=== PATIENT | male | born 1975 | race African-American/Black ===

== ENCOUNTER 2019-04-04 00:25 | Emergency (ER) | payer OTHER ==
[2019-04-04 01:37] VITALS: BMI 25.8
[2019-04-04] MEDS ORDERED: FOLIC ACID INJECTION - 1 MG, THIAMINE HCL 100 MG, MULTIVIT INJECTION ADULT 10 ML in SOD... IVPB ONE (05:10)
--- NOTE | 2019-04-04 05:10 | PDOC ---
*Physical Exam - Vital Signs Last Vital Signs Temp Pulse Resp BP Pulse Ox 98.0 F 88 17 131/71 100 04/04/19 00:42 04/04/19 00:42 04/04/19 00:42 04/04/19 00:42 04/04/19 00:42 ED Treatment Course - LABORATORY CBC & Chemistry Diagram: 04/04/19 05:50 04/04/19 05:50 Medical Decision Making - Medical Decision Making 04/04/19 05:09 Patient seen by the advanced practice provider under my direct supervision. Ancillary testing reviewed as necessary. I agree with plan as outlined by the advanced practice provider. 04/04/19 05:09 Discharge - Discharge Information Problems reviewed: Yes Clinical Impression/Diagnosis: Alcohol withdrawal Qualifiers: Complication of substance-induced condition: uncomplicated Qualified Code(s): F10.230 - Alcohol dependence with withdrawal, uncomplicated Condition: Stable Disposition: TRANSFER ACUTE CARE/OTHER HOSP - Follow up/Referral - Patient Discharge Instructions Patient Printed Discharge Instructions: DI for Drug or Alcohol Withdrawal - Post Discharge Activity
[2019-04-04] MEDS ORDERED: ONDANSETRON 4 MG/2 ML VIAL IVPUSH ONE (05:11)
--- NOTE | 2019-04-04 05:17 | PDOC ---
History of Present Illness - General Chief Complaint: Nausea/Vomiting Stated Complaint: DETOX ETOH Time Seen by Provider: 04/04/19 05:03 History Source: Patient Exam Limitations: No Limitations - History of Present Illness Initial Comments: 04/04/19 05:11 HISTORY OF PRESENT ILLNESS: This a 44-year-old male past medical history of alcohol abuse (1 pint of vodka daily with 3-4 beers additionally) who presents emergency department for evaluation of nausea and vomiting while at detox facility. Patient reports he was in a hospital in the [place] all day yesterday and was discharged from the ER to [facility] facility. Upon arrival at the [facility] detox facility he began to feel nauseous and had one episode of nonbilious nonbloody vomiting. Patient reports his last drink was approximately 24 hours ago. Patient reports he feels mildly anxious. No recent travel or sick contacts. PAST MEDICAL HISTORY: Denies past medical history SURGICAL HISTORY: Denies ALLERGIES: No known drug allergies REVIEW OF SYSTEMS General/Constitutional: Denies fever or chills. Denies weakness, weight change. HEENT: Denies change in vision. Denies ear pain or discharge. Denies sore throat. Cardiovascular: Denies chest pain or shortness of breath. Respiratory: Denies cough, wheezing, or hemoptysis. Gastrointestinal: See HPI Genitourinary: Denies dysuria, frequency, or change in urination. Musculoskeletal: Denies joint or muscle swelling or pain. Denies neck or back pain. Skin and breasts: Denies rash or easy bruising. Neurologic: Denies headache, vertigo, loss of consciousness, or loss of sensation. Psychiatric: Denies depression or anxiety. Endocrine: Denies increased thirst. Denies abnormal weight change. Hematologic/Lymphatic: Denies anemia, easy bleeding, or history of blood clots. Allergic/Immunologic: Denies hives or skin allergy. Denies latex allergy. PHYSICAL EXAM General Appearance: Appears anxious. No apparent distress, no intoxication. HEENT: EOMI, PERRLA, normal ENT inspection, normal voice, TMs normal, pharynx normal. No conjunctival pallor. No photophobia, scleral icterus. Neck: Supple. Trachea midline. No tenderness, rigidity, carotid bruit, stridor , lymphadenopathy, or thyromegaly. Respiratory/Chest: Lungs CTAB. No shortness of breath, chest tenderness, respiratory distress, accessory muscle use. No crackles, rales, rhonchi, stridor , wheezing, dullness Cardiovascular: RRR. S1, S2. No JVD, murmur, bradycardia, tachycardia. Vascular Pulses: Dorsalis-Pedis (R): 2+, Dorsalis-Pedis (L): 2+ Gastrointestinal/Abdominal: Normal bowel sounds. Abdomen soft, non-distended. No tenderness or rebound tenderness. No organomegaly, pulsatile mass, guarding, hernia, hepatomegaly, splenomegaly. Lymphatic: No adenopathy, tenderness. Musculoskeletal/Extremities: Normal inspection. FROM of all extremities, normal capillary refill. Pelvis Stable. No CVA tenderness. No tenderness to extremities, pedal edema, swelling, erythema or deformity. Integumentary: Appropriate color, dry, warm. No cyanosis, erythema, jaundice or rash Neurologic: auto claims adjuster II-XII intact. Fully oriented, alert. Appropriate mood/affect. Motor strength 5/5. No appreciable EOM palsy, facial droop or sensory deficit. Tremors present with arms extended. CIWA-Ar 9. Past History - Past Medical History Allergies/Adverse Reactions: Allergies Allergy/AdvReac Type Severity Reaction Status Date / Time No Known Allergies Allergy Verified 04/04/19 10:31 Home Medications: Ambulatory Orders Betamethasone Dipropionate [Diprosone] 1 applic TP BID 04/03/19 Asthma: Yes COPD: No - Psycho Social/Smoking Cessation Hx Smoking History: Never smoked Have you smoked in the past 12 months: No Information on smoking cessation initiated: No Hx Alcohol Use: Yes Drug/Substance Use Hx: No *Physical Exam - Vital Signs Last Vital Signs Temp Pulse Resp BP Pulse Ox 98.0 F 88 17 131/71 100 04/04/19 00:42 04/04/19 00:42 04/04/19 00:42 04/04/19 00:42 04/04/19 00:42 ED Treatment Course - LABORATORY CBC & Chemistry Diagram: 04/04/19 05:50 04/04/19 05:50 Medical Decision Making - Medical Decision Making 04/04/19 05:16 A/P: 44-year-old male with acute alcohol withdrawal Last drink 24 hours ago CIWA score 9. Tremors noted with arms extended Reports mild anxiety No sweating present CBC, chemistry, alcohol Urine toxicology Banana bag Ativan 2 mg IV push Zofran 4 mg IV push Reassess Discharge - Discharge Information Problems reviewed: Yes Clinical Impression/Diagnosis: Alcohol withdrawal Qualifiers: Complication of substance-induced condition: uncomplicated Qualified Code(s): F10.230 - Alcohol dependence with withdrawal, uncomplicated Condition: Stable Disposition: TRANSFER ACUTE CARE/OTHER HOSP - Follow up/Referral - Patient Discharge Instructions Patient Printed Discharge Instructions: DI for Drug or Alcohol Withdrawal - Post Discharge Activity
[2019-04-04] MEDS ORDERED: LORazepam 2 MG/ML SDV VIAL ONE (05:58)
[2019-04-04] MEDS ORDERED: ONDANSETRON 4 MG/2 ML VIAL ONE (06:00)
[2019-04-04] MEDS ORDERED: chlordiazePOXIDE HCL 25 MG CAPSULE PO ONE (06:04)
[2019-04-04 06:06] LABS: BASO % 2.6 % (0-2.0); EOS % 13.3 % (0-4.5); HEMATOCRIT 37.8 % (35.4-49); HEMOGLOBIN 12.6 GM/dL (11.7-16.9); LYMPH % 22.7 % (8-40); MCH 29.8 pg (25.7-33.7); MCHC 33.4 g/dl (32.0-35.9); MEAN CELL VOLUME 89.4 fl (80-96); MEAN PLT VOLUME 8.1 fl (7.5-11.1); MONO % 9.9 % (3.8-10.2); NEUT % 51.5 % (42.8-82.8); PLATELET COUNT 126 K/MM3 (134-434); RBC 4.23 M/mm3 (4.00-5.60); RDW 16.2 % (11.9-15.9); WHITE BLOOD COUNT 3.7 K/mm3 (4.0-10.0)
[2019-04-04] MEDS ORDERED: chlordiazePOXIDE HCL 25 MG CAPSULE ONE (06:11)
[2019-04-04 06:33] LABS: BILIRUBIN,TOTAL 2.2 mg/dL (0.2-1); BLOOD UREA NITROGEN 5.4 mg/dL (7-18); CALCIUM 9.6 mg/dL (8.5-10.1); CREATININE 0.7 mg/dL (0.55-1.3); TOT PROT 8.2 g/dl (6.4-8.2)
[2019-04-04 08:21] LABS: PH,URINE 6.5 (5.0-8.0); URINE APPEARANCE CLEAR; URINE BILIRUBIN NEGATIVE (NEGATIVE); URINE COLOR YELLOW; URINE GLUCOSE (UA) NEGATIVE (NEGATIVE); URINE KETONE 2+ (NEGATIVE); URINE LEUK ESTERASE NEGATIVE (NEGATIVE); URINE NITRITE NEGATIVE (NEGATIVE); URINE PROTEIN NEGATIVE (NEGATIVE)
--- NOTE | 2019-04-04 08:41 | PDOC ---
*Physical Exam - Vital Signs Last Vital Signs Temp Pulse Resp BP Pulse Ox 98.3 F 96 H 18 134/76 100 04/04/19 07:15 04/04/19 07:15 04/04/19 07:15 04/04/19 07:15 04/04/19 07:15 - Physical Exam 04/04/19 08:37 Sign-out received from outgoing ER provider Willard. Pt interviewed and examined. Ancillary studies reviewed. Pending [facility] care transfer. Called intake at facility, patient accepted by Dr. Morales for transfer back to . ED Treatment Course - LABORATORY CBC & Chemistry Diagram: 04/04/19 05:50 04/04/19 05:50 - ADDITIONAL ORDERS Additional order review: Laboratory Results 04/04/19 04/04/19 04/04/19 07:50 05:50 05:50 Sodium 129 L Potassium 4.0 Chloride 92 L Carbon Dioxide 24 Anion Gap 14 BUN 5.4 L Creatinine 0.7 Est GFR (CKD-EPI)AfAm 133.02 Est GFR (CKD-EPI)NonAf 114.77 Random Glucose 68 L Calcium 9.6 Total Bilirubin 2.2 H AST 140 H ALT 71 H Alkaline Phosphatase 102 Total Protein 8.2 Albumin 4.0 Urine Color Yellow Urine Appearance Clear Urine pH 6.5 Ur Specific [place] 1.006 L Urine Protein Negative Urine Glucose (UA) Negative Urine Ketones 2+ H Urine Blood Negative Urine Nitrite Negative Urine Bilirubin Negative Urine Urobilinogen 2.0 Ur Leukocyte Esterase Negative Alcohol, Quantitative < 3 04/04/19 05:50 RBC 4.23 MCV 89.4 MCHC 33.4 RDW 16.2 H MPV 8.1 Neutrophils % 51.5 Lymphocytes % 22.7 Monocytes % 9.9 Eosinophils % 13.3 H Basophils % 2.6 H - Medications Given in the ED: ED Medications Discontinued Medications Generic Name Dose Route Start Last Admin Trade Name Freq PRN Reason Stop Dose Admin Chlordiazepoxide HCl 50 mg 04/04/19 06:04 04/04/19 06:15 Librium - PO 04/04/19 06:05 50 mg ONCE ONE Administration Lorazepam 2 mg 04/04/19 05:10 04/04/19 06:09 Ativan Injection - IVPUSH 04/04/19 05:11 Not Given ONCE ONE Lorazepam 1 mg 04/04/19 05:19 04/04/19 06:09 Ativan Injection - IVPUSH 04/04/19 05:20 Not Given ONCE ONE Ondansetron HCl 4 mg 04/04/19 05:11 04/04/19 06:09 Zofran Injection IVPUSH 04/04/19 05:12 4 mg ONCE ONE Administration Discharge - Discharge Information Problems reviewed: Yes Clinical Impression/Diagnosis: Alcohol withdrawal Qualifiers: Complication of substance-induced condition: uncomplicated Qualified Code(s): F10.230 - Alcohol dependence with withdrawal, uncomplicated Condition: Stable Disposition: TRANSFER ACUTE CARE/OTHER HOSP - Admission No - Follow up/Referral - Patient Discharge Instructions Patient Printed Discharge Instructions: DI for Drug or Alcohol Withdrawal - Post Discharge Activity
[2019-04-04 08:43] LABS: COCAINE, UR NEGATIVE ng/ml (CUTOFF=300); METHADONE, UR NEGATIVE ng/ml (CUTOFF=300); OPIATES, URI NEGATIVE ng/ml (CUTOFF=300); PHENCYCLIDINE,URINE NEGATIVE ng/ml (CUTOFF=25); URINE AMPHETAMINES NEGATIVE ng/ml (CUTOFF=500); URINE BARBITURATES NEGATIVE ng/ml (CUTOFF=200)
[2019-04-04 08:45] LABS: URINE BENZODIAZEPINES POSITIVE ng/ml (CUTOFF=200)
[2019-04-04 09:25] VITALS: BP 133/88; PULSE 99; TEMP 98
== END 2019-04-04 09:15 | disposition short-term general hospital (02) ==
LOC: JER 00:25
PROC: 3E033GC Introduction of Other Therapeutic Substance into Peripheral Vein, Percutaneous Approach (ICD-10-PCS; principal; 2019-04-04)
PROC: 3E0337Z Introduction of Electrolytic and Water Balance Substance into Peripheral Vein, Percutaneous Approach (ICD-10-PCS; 2019-04-04)
DX: F10.230 Alcohol dependence with withdrawal, uncomplicated (principal)
CPT/HCPCS: 36415; 80053; 80307; 81003; 85025; 87086; 96361; 96365; 99283-25; J7030

== ENCOUNTER 2019-04-04 09:56 | Inpatient (IN) | payer OTHER ==
[2019-04-04 10:35] VITALS: BMI 23.3
--- NOTE | 2019-04-04 11:50 | HP ---
CIWA Score Nausea/Vomitin-No Nausea/No Vomiting Muscle Tremors: 3 Anxiety: 1-Mildly Anxious Agitation: 0-Normal Activity Paroxysmal Sweats: 1-Minimal Palms Moist Orientation: 0-Oriented Tacttile Disturbances: 2-Mild Itch/Numbness/Burn Auditory Disturbances: 0-None Visual Disturbances: 0-None Headache: 2-Mild (CIWA lower due to some librium already given by ED) CIWA-Ar Total Score: 9 - Admission Criteria OASAS Guidelines: Admission for Medically Managed Detox: Requires at least one of the followin. CIWA greater than 12 2. Seizures within the past 24 hours 3. Delirium tremens within the past 24 hours 4. Hallucinations within the past 24 hours 5. Acute intervention needed for co occurring medical disorder 6. Acute intervention needed for co occurring psychiatric disorder 7. Severe withdrawal that cannot be handled at a lower level of care (continued vomiting, continued diarrhea, abnormal vital signs) requiring intravenous medication and/or fluids 8. Admitting History and Physical - Admission Chief Complaint: " I almost passed out yesterday and went to the hospital." History of Present Illness: 44 year old male who was intoxicated upon presentation [facility] last night and was sent to [facility] ER for stabilization. He was given IVFluids and also Librium one dose while there. His vitals were very unstable last night and now that he was stabilized he will be admitted for detox. He is drinking 1 pint vodka daily and 3-4 beers, last drank yesterday morning prior to coming to [facility]. He's had 3 blackouts in the past. Denies withdrawal seizures. PMH: Asthma Psurg: None Psych: None Meds: As per nursing. He lives with his mother. 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 History Source: Patient Limitations to Obtaining History: No Limitations - Past Surgical History Past Surgical History: Yes: None - Advance Directives Advance Directives: No: Living Will, Health Care Proxy, DNR - Smoking History Smoking history: Never smoked Have you smoked in the past 12 months: No - Alcohol/Substance Use Hx Alcohol Use: Yes - Social History Usual Living Arrangement: Yes: With Parent Do you think of yourself as: Straight/Heterosexual ADL: Independent Occupation: unknown History of Recent Travel: No Admission ROS [facility] Allergies/Adverse Reactions: Allergies Allergy/AdvReac Type Severity Reaction Status Date / Time No Known Allergies Allergy Verified 04/04/19 10:31 Exam Limitations: No Limitations - Ebola screening Have you traveled outside of the country in the last 21 days: No (N) Have you had contact with anyone from an Ebola affected area: No Do you have a fever: No - Review of Systems Constitutional: Diaphoresis EENT: reports: No Symptoms Reported Respiratory: reports: No Symptoms reported Cardiac: reports: No Symptoms Reported GI: reports: Nausea : reports: No Symptoms Reported Musculoskeletal: reports: No Symptoms Reported Integumentary: reports: No Symptoms Reported Neuro: reports: No Symptoms reported Endocrine: reports: No Symptoms Reported Hematology: reports: No Symptoms Reported Psychiatric: reports: Judgement Intact, Mood/Affect Appropiate, Orientated x3 Other Systems: Reviewed and Negative Patient History - Patient Medical History Hx Asthma: Yes Hx Chronic Obstructive Pulmonary Disease (COPD): No - Patient Surgical History Past Surgical History: No - PPD History Previous Implant?: Yes Documented Results: Negative w/proof Implanted On Prior [facility] Admission?: Yes Date: 10/24/18 ([facility]) Results: negative PPD to be Administered?: Yes - Smoking Cessation Smoking history: Never smoked Have you smoked in the past 12 months: No Hx Chewing Tobacco Use: No Initiated information on smoking cessation: No - Substances abused Alcohol Substance route: Oral Frequency: Daily Amount used: 1 PINT VODKA, 4 BEERS DAILY Age of first use: 17 Date of last use: 04/03/19 Admission Physical Exam BHS - Vital Signs Vital Signs: Vital Signs - 24 hr 04/04/19 10:31 Temperature 97.5 F L Pulse Rate 92 H Respiratory 18 Rate Blood Pressure 109/76 - Physical General Appearance: Yes: Mild Distress, Irritable, Anxious HEENTM: Yes: EOMI, Hearing grossly Normal, Normal ENT Inspection, Normocephalic , Normal Voice, REBECA, Pharynx Normal, Tm's normal Respiratory: Yes: Chest Non-Tender, Lungs Clear, Normal Breath Sounds, No Respiratory Distress, No Accessory Muscle Use Neck: Yes: No masses,lesions,Nodules, Supple, Trachea in good position Cardiology: Yes: Regular Rhythm, Regular Rate, S1, S2 Abdominal: Yes: Normal Bowel Sounds, Non Tender, Flat Genitourinary: Yes: Within Normal Limits Back: Yes: Normal Inspection Musculoskeletal: Yes: full range of Motion, Gait Steady, Pelvis Stable Extremities: Yes: Normal Capillary Refill, Normal Inspection, Normal Range of Motion, Non-Tender Neurological: Yes: corporate strategist II-XII NML intact, Fully Oriented, Alert, Motor Strength 5/5, Normal Mood/Affect, Normal Response Integumentary: Yes: Normal Color, Warm, Other (multiple areas or papules scars, hyperpigmentation) Lymphatic: Yes: Within Normal Limits - Diagnostic (1) Alcohol dependence with intoxication Current Visit: Yes Status: Acute (2) Asthma Current Visit: Yes Status: Acute Screened but not Admitted - Documentation of Visit Screened but not Admitted: No Breathalyzer - Breathalyzer Breathalyzer: 0 Urine Drug Screen - Test Device Lot number: [id number] Expiration date: 10/18/20 - Control Is test valid?: Yes - Results Drug screen NEGATIVE: No Urine drug screen results: BZO-Benzodiazepines Inpatient Rehab Admission - Rehab Decision to Admit Inpatient rehab admission?: No
[2019-04-04] MEDS ORDERED: chlordiazePOXIDE HCL 25 MG CAPSULE PO PRN (11:57)
[2019-04-04] MEDS ORDERED: BISMUTH SUBSALICYLATE 262 MG/15 ML BTL PO PRN (11:57)
[2019-04-04] MEDS ORDERED: MENTHOL/PHENOL 1 EACH UD MM PRN (11:57)
[2019-04-04] MEDS ORDERED: hydrOXYzine PAMOATE 25 MG CAPSULE (FP) PO PRN (11:57)
[2019-04-04] MEDS ORDERED: METHOCARBAMOL 500 MG TABLET PO PRN (11:57)
[2019-04-04] MEDS ORDERED: MAG HYDROX/AL HYDROX/SIMETH 30 ML UNIT-DOSE CUP PO PRN (11:57)
[2019-04-04] MEDS ORDERED: MAGNESIUM HYDROX 2400MG/30ML ORAL SUSPENSION 30 ML CUP PO PRN (11:57)
[2019-04-04] MEDS ORDERED: ACETAMINOPHEN 325 MG TABLET (FP) PO PRN ×2 (11:57)
[2019-04-04] MEDS ORDERED: IBUPROFEN 400 MG TABLET (FP) PO PRN (11:57)
[2019-04-04] MEDS ORDERED: MAGNESIUM CITRATE 300 ML BOTTLE PO PRN (11:57)
[2019-04-04] MEDS: chlordiazePOXIDE HCL 25 MG CAPSULE PO SCH ×3 (13:42→22:13)
[2019-04-04] MEDS: THIAMINE HCL 100 MG TABLET (FP) PO SCH (22:13)
[2019-04-04] MEDS: BETAMETHASONE DIPR 0.05% OINTMENT 15 GM TUBE TP SCH (22:13)
[2019-04-04] MEDS: MELATONIN 5 MG TABLETS PO PRN (22:17)
[2019-04-05] MEDS: chlordiazePOXIDE HCL 25 MG CAPSULE PO SCH ×4 (07:49→22:22)
[2019-04-05] MEDS: PRENATAL VITAMINS W/ FOLIC ACID TABLET (FP) PO SCH (10:53)
[2019-04-05] MEDS: BETAMETHASONE DIPR 0.05% OINTMENT 15 GM TUBE TP SCH ×2 (10:54→22:32)
--- NOTE | 2019-04-05 11:10 | PN ---
S CIWA - CIWA Score Nausea/Vomitin-No Nausea/No Vomiting Muscle Tremors: 2 Anxiety: 3 Agitation: 1-Slight > Activity Paroxysmal Sweats: 2 Orientation: 0-Oriented Tacttile Disturbances: 2-Mild Itch/Numbness/Burn Auditory Disturbances: 0-None Visual Disturbances: 0-None Headache: 1-Very Mild CIWA-Ar Total Score: 11 BHS Progress Note (SOAP) Subjective: Patient is a 44 yo male with hx of alcohol dependence on librium detox protocol c/o interrupted sleep, fatigue, chills Objective: 04/05/19 11:09 Vital Signs Temperature 98.2 F 04/05/19 09:56 Pulse Rate 102 H 04/05/19 09:56 Respiratory Rate 18 04/05/19 09:56 Blood Pressure 98/61 04/05/19 09:56 O2 Sat by Pulse Oximetry (%) Laboratory Tests 04/04/19 12:00 RPR Titer Nonreactive labs completed at [facility] 04/04/2019 reviewed elevated LFTS, repeat CMP d/t ETOH abuse Assessment: 04/05/19 11:11 Aox3 no acute distress EENT WNL Full ROM no gait disturbance Plan: increase fluids continue detox continue to monitor
[2019-04-05 14:33] LABS: ALBUMIN 3.6 g/dl (3.4-5.0); BILIRUBIN,TOTAL 0.7 mg/dL (0.2-1); CALCIUM 9.8 mg/dL (8.5-10.1); CREATININE 0.8 mg/dL (0.55-1.3); POTASSIUM 3.8 mmol/L (3.5-5.1); TOT PROT 7.6 g/dl (6.4-8.2)
[2019-04-05] MEDS: THIAMINE HCL 100 MG TABLET (FP) PO SCH (22:22)
[2019-04-05] MEDS: MELATONIN 5 MG TABLETS PO PRN (22:24)
[2019-04-06] MEDS: chlordiazePOXIDE HCL 25 MG CAPSULE PO SCH ×4 (05:50→22:11)
[2019-04-06] MEDS: BETAMETHASONE DIPR 0.05% OINTMENT 15 GM TUBE TP SCH ×2 (10:34→22:13)
[2019-04-06] MEDS: PRENATAL VITAMINS W/ FOLIC ACID TABLET (FP) PO SCH (10:35)
--- NOTE | 2019-04-06 11:07 | PN ---
S CIWA - CIWA Score Nausea/Vomitin-No Nausea/No Vomiting Muscle Tremors: 3 Anxiety: 2 Agitation: 2 Paroxysmal Sweats: 1-Minimal Palms Moist Orientation: 0-Oriented Tacttile Disturbances: 0-None Auditory Disturbances: 0-None Visual Disturbances: 0-None Headache: 0-None Present CIWA-Ar Total Score: 8 BHS Progress Note (SOAP) Subjective: tired sweats body aches Objective: 04/06/19 11:07 Vital Signs Temperature 98.0 F 04/06/19 09:29 Pulse Rate 92 H 04/06/19 09:29 Respiratory Rate 18 04/06/19 09:29 Blood Pressure 126/75 04/06/19 09:29 O2 Sat by Pulse Oximetry (%) Laboratory Tests 04/04/19 04/05/19 12:00 12:35 Sodium 137 Potassium 3.8 Chloride 100 Carbon Dioxide 30 Anion Gap 6 L BUN 5.0 L Creatinine 0.8 Est GFR (CKD-EPI)AfAm 125.92 Est GFR (CKD-EPI)NonAf 108.65 Random Glucose 72 L Calcium 9.8 Total Bilirubin 0.7 AST 53 H ALT 46 Alkaline Phosphatase 79 Total Protein 7.6 Albumin 3.6 RPR Titer Nonreactive aaox3 ambulating no acute distress Assessment: 04/06/19 11:13 withdrawals Plan: continue detox
[2019-04-06] MEDS: THIAMINE HCL 100 MG TABLET (FP) PO SCH (22:11)
[2019-04-06] MEDS: MELATONIN 5 MG TABLETS PO PRN (22:12)
[2019-04-07] MEDS ORDERED: chlordiazePOXIDE HCL 10 MG CAPSULE PO PRN
[2019-04-07] MEDS: chlordiazePOXIDE HCL 10 MG CAPSULE PO SCH ×4 (06:11→22:18)
[2019-04-07] MEDS: BETAMETHASONE DIPR 0.05% OINTMENT 15 GM TUBE TP SCH ×2 (10:23→22:19)
[2019-04-07] MEDS: PRENATAL VITAMINS W/ FOLIC ACID TABLET (FP) PO SCH (10:23)
--- NOTE | 2019-04-07 15:01 | PN ---
S CIWA - CIWA Score Nausea/Vomitin-No Nausea/No Vomiting Muscle Tremors: 3 Anxiety: 3 Agitation: 0-Normal Activity Paroxysmal Sweats: No Perspiration Orientation: 0-Oriented Tacttile Disturbances: 0-None Auditory Disturbances: 0-None Visual Disturbances: 1-Very Mild Sensitivity Headache: 0-None Present CIWA-Ar Total Score: 7 BHS Progress Note (SOAP) Subjective: Interrupted Sleep, Anxious. Objective: PATIENT A & O X 3. IN NO ACUTE DISTRESS. 04/07/19 15:03 Vital Signs Temperature 96.6 F L 04/07/19 09:25 Pulse Rate 83 04/07/19 09:25 Respiratory Rate 16 04/07/19 09:25 Blood Pressure 103/68 04/07/19 09:25 O2 Sat by Pulse Oximetry (%) Laboratory Tests 04/04/19 04/05/19 12:00 12:35 Sodium 137 Potassium 3.8 Chloride 100 Carbon Dioxide 30 Anion Gap 6 L BUN 5.0 L Creatinine 0.8 Est GFR (CKD-EPI)AfAm 125.92 Est GFR (CKD-EPI)NonAf 108.65 Random Glucose 72 L Calcium 9.8 Total Bilirubin 0.7 AST 53 H ALT 46 Alkaline Phosphatase 79 Total Protein 7.6 Albumin 3.6 RPR Titer Nonreactive LABS NOTED. Assessment: 04/07/19 15:03 WITHDRAWAL SYMPTOMS. LEUKOPENIA. THROMBOCYTOPENIA. ELEVATED AST LEVEL. 04/07/19 15:06 Plan: CONTINUE DETOX.
[2019-04-07] MEDS: THIAMINE HCL 100 MG TABLET (FP) PO SCH (22:18)
[2019-04-07] MEDS: MELATONIN 5 MG TABLETS PO PRN (22:20)
[2019-04-08] MEDS: chlordiazePOXIDE HCL 10 MG CAPSULE PO SCH ×2 (05:53→17:51)
[2019-04-08] MEDS: PRENATAL VITAMINS W/ FOLIC ACID TABLET (FP) PO SCH (11:19)
[2019-04-08] MEDS: BETAMETHASONE DIPR 0.05% OINTMENT 15 GM TUBE TP SCH ×2 (11:20→22:03)
--- NOTE | 2019-04-08 13:25 | PN ---
BHS CIWA - CIWA Score Nausea/Vomitin-No Nausea/No Vomiting Muscle Tremors: 2 Anxiety: 1-Mildly Anxious Agitation: 1-Slight > Activity Paroxysmal Sweats: No Perspiration Orientation: 0-Oriented Tacttile Disturbances: 0-None Auditory Disturbances: 0-None Visual Disturbances: 0-None Headache: 0-None Present CIWA-Ar Total Score: 4 BHS Progress Note (SOAP) Subjective: tired i want ensure please Objective: 04/08/19 13:25 Vital Signs Temperature 97.5 F L 04/08/19 09:30 Pulse Rate 93 H 04/08/19 09:30 Respiratory Rate 16 04/08/19 09:30 Blood Pressure 112/79 04/08/19 09:30 O2 Sat by Pulse Oximetry (%) aaox3 ambulating no acute distress Assessment: 04/08/19 13:25 mild withdrawals Plan: ensure bid d/c in am
[2019-04-08] MEDS: THIAMINE HCL 100 MG TABLET (FP) PO SCH (22:03)
[2019-04-09] MEDS ORDERED: chlordiazePOXIDE HCL 10 MG CAPSULE PO ONE (05:00)
[2019-04-09 07:06] VITALS: BP 137/95; PULSE 85; TEMP 97.7
--- NOTE | 2019-04-09 08:44 | DS ---
[facility] Detox Discharge Summary Admission Date: 04/04/19 Discharge Date: 04/09/19 - History Present History: Alcohol Dependence - Physical Exam Results Vital Signs: Vital Signs Temperature 97.7 F 04/09/19 07:05 Pulse Rate 85 04/09/19 07:05 Respiratory Rate 18 04/09/19 07:05 Blood Pressure 137/95 04/09/19 07:05 O2 Sat by Pulse Oximetry (%) Laboratory Tests 04/04/19 04/05/19 12:00 12:35 Sodium 137 Potassium 3.8 Chloride 100 Carbon Dioxide 30 Anion Gap 6 L BUN 5.0 L Creatinine 0.8 Est GFR (CKD-EPI)AfAm 125.92 Est GFR (CKD-EPI)NonAf 108.65 Random Glucose 72 L Calcium 9.8 Total Bilirubin 0.7 AST 53 H ALT 46 Alkaline Phosphatase 79 Total Protein 7.6 Albumin 3.6 RPR Titer Nonreactive aaox3 ambulating no acute distress Pertinent Admission Physical Exam Findings: Vital Signs Temperature 97.7 F 04/09/19 07:05 Pulse Rate 85 04/09/19 07:05 Respiratory Rate 18 04/09/19 07:05 Blood Pressure 137/95 04/09/19 07:05 O2 Sat by Pulse Oximetry (%) Laboratory Tests 04/04/19 04/05/19 12:00 12:35 Sodium 137 Potassium 3.8 Chloride 100 Carbon Dioxide 30 Anion Gap 6 L BUN 5.0 L Creatinine 0.8 Est GFR (CKD-EPI)AfAm 125.92 Est GFR (CKD-EPI)NonAf 108.65 Random Glucose 72 L Calcium 9.8 Total Bilirubin 0.7 AST 53 H ALT 46 Alkaline Phosphatase 79 Total Protein 7.6 Albumin 3.6 RPR Titer Nonreactive aaox3 ambulating no acute distress - Treatment Hospital Course: Detox Protocol Followed, Detoxed Safely, Responded well, Discharged Condition Good, Rehab Referral Accepted Patient has Accepted a Rehab Referral to: pt declined - Medication Discharge Medications: Ambulatory Orders Betamethasone Dipropionate [Diprosone] 1 applic TP BID 04/03/19 - Diagnosis (1) Alcohol dependence with intoxication Current Visit: Yes Status: Acute Qualifiers: Complication of substance-induced condition: uncomplicated Qualified Code(s ): F10.220 - Alcohol dependence with intoxication, uncomplicated (2) Asthma Current Visit: Yes Status: Acute Qualifiers: Asthma severity: mild Asthma persistence: unspecified Asthma complication type: unspecified Qualified Code(s): J45.909 - Unspecified asthma , uncomplicated (3) Alcohol withdrawal Current Visit: No Status: Acute Qualifiers: Complication of substance-induced condition: uncomplicated Qualified Code(s ): F10.230 - Alcohol dependence with withdrawal, uncomplicated - AMA Did Patient Leave Against Medical Advice: No
== END 2019-04-09 09:25 | disposition home or self-care (01) | DRG 775 ==
LOC: YASAS 09:56 → Y3N 12:27 → UNDOADMIN 12:27 → Y6N 12:38
PROVIDERS: ADMIT Allergy & Immunology; ATTEND Allergy & Immunology
PROC: HZ2ZZZZ Detoxification Services for Substance Abuse Treatment (ICD-10-PCS; principal; 2019-04-04)
DX: F10.230 Alcohol dependence with withdrawal, uncomplicated (principal); F10.220 Alcohol dependence with intoxication, uncomplicated; J45.909 Unspecified asthma, uncomplicated; R74.0 Nonspecific elevation of levels of transaminase and lactic acid dehydrogenase [LDH]; D69.6 Thrombocytopenia, unspecified; D72.819 Decreased white blood cell count, unspecified
CPT/HCPCS: 36415; 80053; 86593